=== PATIENT | male | born 1960 | race Two or more races ===

== ENCOUNTER 2024-06-11 17:25 | Emergency (ER) | payer SELFPAY ==
[~2024-06-11] VITALS: Ht 167.6 cm; Wt 89.9 kg
[2024-06-11 18:08] VITALS: BP 146/81; PULSE 69; RESP 17; TEMP 98.1; O2SAT 98
[2024-06-11] MEDS: KETOROLAC TROMETH 60MG/2ML VIAL IM ONE (18:37)
[2024-06-11] MEDS ORDERED: METH4PAK PO (18:51)
== END 2024-06-11 18:59 | disposition home or self-care (01) ==
LOC: ER 17:25
DX: S83.412A Sprain of medial collateral ligament of left knee, initial encounter (principal); X50.1XXA Overexertion from prolonged static or awkward postures, initial encounter; Y93.89 Activity, other specified; Y92.89 Other specified places as the place of occurrence of the external cause; Y99.8 Other external cause status
CPT/HCPCS: 73562; 96372; 99283; J1885